=== PATIENT | female | born 1950 | race Caucasian/White ===

== ENCOUNTER 2016-06-22 15:06 | Inpatient (IN) | payer OTHER ==
[~2016-06-22] VITALS: Ht 157.5 cm; Wt 73.5 kg
[~2016-06-22 15:06] MED LIST: COVERA HS 240240 MG PO; CYMBALTA60 MG PO; FLONASE16 G1 BOTH NARES; FUROSEMIDE20 MG PO; HYDROCHLOROTH12.5 MG PO; LOVASTATIN40 MG PO; MAGNESIUM400 M1 PO; MECLIZINE HCL25 MG PO; MELATONIN10 M1 PO; MIRALAX255 GM PO; MUCINEX D ER T1 EACH PO; PRAVASTATIN SOD80 MG PO; SYMBICORT60 INHALAT IH; VERAPAMIL HCL180 MG PO; ZANTAC300 MG PO; ZETIA10 MG PO
[2016-06-22 16:23] LABS: HEMATOCRIT 31.5 % (36.0-46.0); MCH 26.8 PG (29.0-34.0); MCHC 32.7 G/DL (30.0-36.0); MEAN PLAT.VOLUME 11.2 uM^3 (9.5-12.4); PLATELET COUNT 593 K/uL (156-360); RBC DIS.WIDTH-CV 16.6 % (11.8-14.6); RBC DIS.WIDTH-SD 48.3 % (39-53); RED BLOOD COUNT 3.84 M/uL (3.80-5.20); WHITE BLOOD COUNT 11.9 K/uL (4.1-10.2)
[2016-06-22 16:33] LABS: INTER. NORMALIZED RATIO 1.2; PROTHROMBIN TIME 12.7 (9.2-11.2); PTT 35.2 (25-32)
[2016-06-22 16:38] LABS: CHLORIDE 98 mEq/L (99-109); SODIUM 132 mEq/L (136-147)
[2016-06-22 16:39] LABS: GLUCOSE 107 mg/dL (70-99)
[2016-06-22 16:41] LABS: ANION GAP 13 MEQ/L (2-14)
[2016-06-22 16:43] LABS: GFR ESTIMATE (CALCULATED) > 59 mL/min/
[2016-06-22 16:44] LABS: TROP-I INTERPRETATION NEGATIVE; TROPONIN-I < 0.01 ng/mL (0.0-0.30); UREA NITROGEN (BUN) 11 mg/dL (9-23)
[2016-06-22] MEDS ORDERED: OXAYDO5 MG PO (22:33)
[2016-06-22] MEDS ORDERED: K-DUR20 MEQ PO (22:33)
[2016-06-23 06:27] LABS: HEMATOCRIT 28.7 % (36.0-46.0); MCH 26.8 PG (29.0-34.0); MCHC 32.8 G/DL (30.0-36.0); MCV 81.8 FL (83-99); MEAN PLAT.VOLUME 11.1 uM^3 (9.5-12.4); PLATELET COUNT 580 K/uL (156-360); RBC DIS.WIDTH-CV 16.7 % (11.8-14.6); RED BLOOD COUNT 3.51 M/uL (3.80-5.20); WHITE BLOOD COUNT 9.2 K/uL (4.1-10.2)
[2016-06-23 06:34] LABS: CHLORIDE 104 mEq/L (99-109); SODIUM 137 mEq/L (136-147)
[2016-06-23 06:36] LABS: POTASSIUM 3.7 mEq/L (3.7-5.4)
[2016-06-23 06:37] LABS: GLUCOSE 94 mg/dL (70-99); INTER. NORMALIZED RATIO 1.2; PROTHROMBIN TIME 12.7 (9.2-11.2); PTT 48.2 (25-32)
[2016-06-23 06:38] LABS: ANION GAP 13 MEQ/L (2-14); TOTAL BILIRUBIN 0.5 mg/dL (0.0-1.0)
[2016-06-23 06:40] LABS: ALKALINE PHOSPHATASE 134 IU/L (3-129); GFR ESTIMATE (CALCULATED) > 59 mL/min/
[2016-06-23 06:41] LABS: UREA NITROGEN (BUN) 9 mg/dL (9-23)
[2016-06-23 14:03] VITALS: BP 116/70
[2016-06-23 14:13] LABS: INTER. NORMALIZED RATIO 1.2; PROTHROMBIN TIME 12.7 (9.2-11.2); PTT 57.4 (25-32)
[2016-06-23 16:00] VITALS: BP 125/58
[2016-06-23 20:00] VITALS: BP 135/74
[2016-06-23 21:32] LABS: INTER. NORMALIZED RATIO 1.3; PROTHROMBIN TIME 13.2 (9.2-11.2); PTT 43.4 (25-32)
== END 2016-06-24 00:28 | disposition short-term general hospital (02) | DRG 299 ==
LOC: EME 15:06 → EDOF 23:14 → 4EAST 06-23 15:48
PROVIDERS: Emergency Medicine; Hospitalist
DX: I82.411 Acute embolism and thrombosis of right femoral vein (principal); I26.99 Other pulmonary embolism without acute cor pulmonale; T81.31XA Disruption of external operation (surgical) wound, not elsewhere classified, initial encounter; I10 Essential (primary) hypertension; I38 Endocarditis, valve unspecified; E78.5 Hyperlipidemia, unspecified; G43.909 Migraine, unspecified, not intractable, without status migrainosus; Z96.652 Presence of left artificial knee joint; T81.4XXA Infection following a procedure, initial encounter; L02.211 Cutaneous abscess of abdominal wall; E66.9 Obesity, unspecified; L76.34 Postprocedural seroma of skin and subcutaneous tissue following other procedure; Y83.6 Removal of other organ (partial) (total) as the cause of abnormal reaction of the patient, or of later complication, without mention of misadventure at the time of the procedure
CPT/HCPCS: 80048; 80053; 84484; 85027; 85610; 85730; 93970; 94799; 99281; 99285; C9113; G0378; J0692; J7030; J7040; J7050; S0030

== ENCOUNTER 2016-11-23 09:53 | Day surgery (SDC) | payer OTHER ==
[~2016-11-23] VITALS: Ht 157.5 cm; Wt 76.0 kg
[~2016-11-23 09:53] MED LIST changes: +24 HOUR ALLER15.8 ML BOTH NARES; +FAMOTIDINE20 MG PO; +K-DUR20 MEQ PO; +LORADAMED10 MG PO; +MUCINEX1200 MG PO; +OXAYDO5 MG PO; +XARELTO20 MG PO; +ZOFRAN4 MG PO
== END 2016-11-23 16:55 | disposition home or self-care (01) ==
LOC: CATH 09:53
DX: I25.10 Atherosclerotic heart disease of native coronary artery without angina pectoris (principal); I35.0 Nonrheumatic aortic (valve) stenosis; I10 Essential (primary) hypertension; E78.5 Hyperlipidemia, unspecified; Z68.33 Body mass index [BMI] 33.0-33.9, adult; E66.9 Obesity, unspecified; Z86.711 Personal history of pulmonary embolism; Z86.718 Personal history of other venous thrombosis and embolism; Z79.01 Long term (current) use of anticoagulants; Z85.07 Personal history of malignant neoplasm of pancreas; Z88.0 Allergy status to penicillin; Z87.891 Personal history of nicotine dependence; Z82.49 Family history of ischemic heart disease and other diseases of the circulatory system
CPT/HCPCS: 85347; C1769; C1887; J1644; J2250; J3010

== ENCOUNTER 2016-11-26 09:12 | Inpatient (IN) | payer OTHER ==
[~2016-11-26] VITALS: Ht 154.9 cm; Wt 75.3 kg
[2016-11-26] VITALS (9 sets, daily range): BP systolic 104–135; BP diastolic 62–76
[2016-11-26 09:43] LABS: ADD MIUA? YES; BILIRUBIN NEGATIVE; BLOOD LARGE; COLOR AMBER ((YELLOW)); GLUCOSE (STRIP) NEGATIVE; KETONES NEGATIVE; LEUKOCYTES LARGE; NITRITE NEGATIVE; PROTEIN (STRIP) 100; SPECIFIC GRAVITY 1.009 (1.000-1.030); UROBILINOGEN 0.2 MG/DL (0.2-1.0)
[2016-11-26 09:49] LABS: BACTERIA 1+ /HPF; BUDDING YEAST 2+; EPITHELIAL CELLS NONE SEEN /HPF; MUCUS NONE SEEN /LPF; RED BLOOD CELLS TNTC /HPF (0-5); UCUL ADDED? YES; WHITE BLOOD CELLS TNTC /HPF (0-5)
[2016-11-26 09:50] LABS: MCH 25.8 PG (29.0-34.0); MCHC 32.3 G/DL (30.0-36.0); MCV 79.8 FL (83-99); MEAN PLAT.VOLUME 11.2 uM^3 (9.5-12.4); PLATELET COUNT 548 K/uL (156-360); RBC DIS.WIDTH-CV 17.1 % (11.8-14.6); RBC DIS.WIDTH-SD 49.1 % (39-53); RED BLOOD COUNT 4.89 M/uL (3.80-5.20); WHITE BLOOD COUNT 12.2 K/uL (4.1-10.2)
[2016-11-26 10:02] LABS: CHLORIDE 105 mEq/L (99-109); POTASSIUM 3.6 mEq/L (3.7-5.4); SODIUM 143 mEq/L (136-147)
[2016-11-26 10:03] LABS: GLUCOSE 120 mg/dL (70-99)
[2016-11-26 10:05] LABS: ANION GAP 11 MEQ/L (2-14)
[2016-11-26 10:07] LABS: GFR ESTIMATE (CALCULATED) > 59 mL/min/
[2016-11-26 10:08] LABS: UREA NITROGEN (BUN) 13 mg/dL (9-23)
[2016-11-26 10:17] LABS: TROP-I INTERPRETATION POSITIVE; TROPONIN-I 5.11 ng/mL (0.0-0.30)
[2016-11-26] MEDS ORDERED: VERAPAMIL SR120 MG PO (11:34)
[2016-11-26] MEDS ORDERED: TYLENOL EXTRA500 MG PO (11:34)
[2016-11-26] MEDS ORDERED: ANTIVERT25 MG PO (11:35)
[2016-11-26] MEDS ORDERED: FLUNISOLIDE25 ML BOTH NARES (11:36)
[2016-11-26 13:56] LABS: TROP-I INTERPRETATION POSITIVE; TROPONIN-I 8.81 ng/mL (0.0-0.30)
[2016-11-26 19:18] LABS: METH RESISTANT S AUREUS PCR NEGATIVE (NEGATIVE)
[2016-11-26 19:29] LABS: PROBE CHECK PASS; SPECIMEN PROCESSING CONTROL PASS
[2016-11-26 22:13] LABS: TROP-I INTERPRETATION POSITIVE
[2016-11-26 22:35] LABS: INTER. NORMALIZED RATIO 1.1; PROTHROMBIN TIME 11.2 (9.2-11.2)
[2016-11-27] VITALS (16 sets, daily range): BP systolic 104–152; BP diastolic 54–78
[2016-11-27 04:19] LABS: HEMATOCRIT 34.8 % (36.0-46.0); MCH 25.7 PG (29.0-34.0); MCHC 32.2 G/DL (30.0-36.0); MCV 79.8 FL (83-99); MEAN PLAT.VOLUME 11.2 uM^3 (9.5-12.4); PLATELET COUNT 473 K/uL (156-360); RBC DIS.WIDTH-SD 47.8 % (39-53); RED BLOOD COUNT 4.36 M/uL (3.80-5.20); WHITE BLOOD COUNT 11.5 K/uL (4.1-10.2)
[2016-11-27 04:33] LABS: CHLORIDE 110 mEq/L (99-109); SODIUM 142 mEq/L (136-147)
[2016-11-27 04:34] LABS: MAGNESIUM 1.8 mg/dL (1.3-2.7)
[2016-11-27 04:35] LABS: GLUCOSE 112 mg/dL (70-99)
[2016-11-27 04:37] LABS: ANION GAP 9 MEQ/L (2-14)
[2016-11-27 04:39] LABS: GFR ESTIMATE (CALCULATED) > 59 mL/min/
[2016-11-27 04:40] LABS: UREA NITROGEN (BUN) 18 mg/dL (9-23)
[2016-11-27 04:41] LABS: TROP-I INTERPRETATION POSITIVE; TROPONIN-I 5.47 ng/mL (0.0-0.30)
[2016-11-27 14:51] LABS: TROP-I INTERPRETATION POSITIVE; TROPONIN-I 4.16 ng/mL (0.0-0.30)
[2016-11-27 19:31] LABS: TROP-I INTERPRETATION POSITIVE; TROPONIN-I 4.06 ng/mL (0.0-0.30)
== END 2016-11-27 23:02 | disposition short-term general hospital (02) | DRG 281 ==
LOC: EME 09:12 → 4WEST 13:07 → EDOF 13:07 → 4WEST 17:27
PROVIDERS: Emergency Medicine; Internal Medicine Critical Care Medicine
DX: I21.4 Non-ST elevation (NSTEMI) myocardial infarction (principal); Z95.1 Presence of aortocoronary bypass graft; Z95.2 Presence of prosthetic heart valve; I10 Essential (primary) hypertension; E78.5 Hyperlipidemia, unspecified; E87.6 Hypokalemia; I25.2 Old myocardial infarction; I35.0 Nonrheumatic aortic (valve) stenosis; I44.0 Atrioventricular block, first degree; K21.9 Gastro-esophageal reflux disease without esophagitis; N39.0 Urinary tract infection, site not specified; R04.0 Epistaxis; Z80.1 Family history of malignant neoplasm of trachea, bronchus and lung; Z80.51 Family history of malignant neoplasm of kidney; Z82.5 Family history of asthma and other chronic lower respiratory diseases; Z82.49 Family history of ischemic heart disease and other diseases of the circulatory system; Z85.07 Personal history of malignant neoplasm of pancreas; Z86.711 Personal history of pulmonary embolism; Z86.718 Personal history of other venous thrombosis and embolism; Z87.442 Personal history of urinary calculi; Z87.891 Personal history of nicotine dependence; Z88.6 Allergy status to analgesic agent; Z90.49 Acquired absence of other specified parts of digestive tract; Z90.710 Acquired absence of both cervix and uterus; Z90.81 Acquired absence of spleen; K30 Functional dyspepsia; R20.2 Paresthesia of skin; R31.9 Hematuria, unspecified
CPT/HCPCS: 71020; 80048; 81003; 83735; 84100; 84484; 85027; 85610; 85730; 87077; 87086; 87186; 87641; 93005; 99281; 99285; J7030

== ENCOUNTER 2017-01-16 09:16 | Emergency (ER) | payer OTHER ==
[~2017-01-16] VITALS: Ht 154.9 cm; Wt 81.4 kg
[~2017-01-16 09:16] MED LIST changes: +ANTIVERT25 MG PO; +FLUNISOLIDE25 ML BOTH NARES; +TYLENOL EXTRA500 MG PO; +VERAPAMIL SR120 MG PO
[2017-01-16] MEDS ORDERED: BACTRIM,SEPT1 TABLET PO (11:40)
[2017-01-16] MEDS ORDERED: NORCO 5/3251 TABLET PO (11:55)
[2017-01-16 11:59] VITALS: BP 118/64
== END 2017-01-16 11:59 | disposition home or self-care (01) ==
LOC: EME 09:16
DX: L03.319 Cellulitis of trunk, unspecified (principal); I10 Essential (primary) hypertension; M79.7 Fibromyalgia; K21.9 Gastro-esophageal reflux disease without esophagitis; Z85.07 Personal history of malignant neoplasm of pancreas; Z87.442 Personal history of urinary calculi; Z95.2 Presence of prosthetic heart valve

== ENCOUNTER 2017-06-14 13:55 | Inpatient (IN) | payer OTHER ==
[~2017-06-14] VITALS: Ht 157.5 cm; Wt 89.8 kg
[~2017-06-14 13:55] MED LIST changes: +BACTRIM,SEPT1 TABLET PO; +NORCO 5/3251 TABLET PO; +ROXICODONE5 MG PO; +XARELTO15 MG PO; -XARELTO20 MG PO
[2017-06-14 15:45] LABS: ALBUMIN 3.5 g/dL (3.2-4.8)
[2017-06-14 15:46] LABS: CHLORIDE 92 mEq/L (99-109); POTASSIUM 3.1 mEq/L (3.7-5.4); SODIUM 132 mEq/L (136-147)
[2017-06-14 15:48] LABS: GLUCOSE 191 mg/dL (70-99); TOTAL PROTEIN 7.8 g/dL (6.4-8.3)
[2017-06-14 15:49] LABS: APPEARANCE CLOUDY ((CLEAR)); BILIRUBIN NEGATIVE; BLOOD NEGATIVE; COLOR AMBER ((YELLOW)); GLUCOSE (STRIP) NEGATIVE; KETONES NEGATIVE; LEUKOCYTES NEGATIVE; NITRITE NEGATIVE; PROTEIN (STRIP) 100; SPECIFIC GRAVITY 1.023 (1.000-1.030); UROBILINOGEN 0.2 MG/DL (0.2-1.0)
[2017-06-14 15:50] LABS: TOTAL BILIRUBIN 0.6 mg/dL (0.0-1.0)
[2017-06-14 15:51] LABS: ALKALINE PHOSPHATASE 300 IU/L (3-129)
[2017-06-14 15:52] LABS: CREATININE 1.6 mg/dL (0.6-1.3); GFR ESTIMATE (CALCULATED) 34 mL/min/
[2017-06-14 15:53] LABS: AST (GOT) 409 IU/L (2-34); UREA NITROGEN (BUN) 50 mg/dL (9-23)
[2017-06-14 15:55] LABS: ALT (GPT) 289 IU/L (3-49); LIPASE 106 U/L (1.0-51.0)
[2017-06-14 16:51] LABS: BACTERIA 1+ /HPF; EPITHELIAL CELLS 2+ /HPF; HYALINE CASTS TNTC /LPF; MUCUS 1+ /LPF; RED BLOOD CELLS 0-5 /HPF (0-5); UCUL ADDED? YES
[2017-06-14 17:05] LABS: HEMATOCRIT 41.1 % (36.0-46.0); MCH 24.9 PG (29.0-34.0); MCHC 33.3 G/DL (30.0-36.0); MCV 74.7 FL (83-99); NRBC (%) 47.7 /100 WBC (0-0); PLATELET COUNT 380 K/uL (156-360); RBC DIS.WIDTH-CV 19.2 % (11.8-14.6); RBC DIS.WIDTH-SD 42.7 % (39-53)
[2017-06-14 17:06] LABS: HEMOGLOBIN 13.7 G/DL (11.9-15.5)
[2017-06-14 17:41] LABS: WHITE BLOOD COUNT 18.8 K/uL (4.1-10.2)
[2017-06-14] MEDS ORDERED: COMPAZINE10 MG PO (17:51)
[2017-06-14] MEDS ORDERED: KLOR-CON M2020 MEQ PO (17:52)
[2017-06-14 22:00] LABS: INTER. NORMALIZED RATIO 2.1
[2017-06-14 22:02] LABS: PTT 29.9 SEC (25-37)
[2017-06-15 00:07] LABS: C DIFF TOXIN NEGATIVE (NEGATIVE)
[2017-06-15 04:22] VITALS: BP 125/68
[2017-06-15 06:39] LABS: ALBUMIN 2.6 G/DL (3.2-4.8); ALKALINE PHOSPHATASE 231 IU/L (3-129); ALT (GPT) 168 IU/L (3-49); AST (GOT) 247 IU/L (2-34); CHLORIDE 104 MEQ/L (99-109); CREATININE 1.2 MG/DL (0.6-1.3); DIRECT BILIRUBIN 0.2 mg/dL (0.0-0.3); GFR ESTIMATE (CALCULATED) 48 mL/min/; GLUCOSE 158 mg/dL (70-99); POTASSIUM 2.9 MEQ/L (3.7-5.4); SODIUM 137 MEQ/L (136-147); TOTAL BILIRUBIN 0.5 MG/DL (0.0-1.0); TOTAL PROTEIN 5.6 G/DL (6.4-8.3); UREA NITROGEN (BUN) 39 mg/dL (9-23)
[2017-06-15 07:30] VITALS: BP 119/68
[2017-06-15 08:30] LABS: PLATELET COUNT UNABLE TO REPORT K/uL (156-360)
[2017-06-15 08:56] LABS: HEMATOCRIT 34.7 % (36.0-46.0); MCH 24.5 PG (29.0-34.0); MCHC 32.3 G/DL (30.0-36.0); MCV 75.9 FL (83-99); NRBC (%) 48.6 /100 WBC (0-0); RBC DIS.WIDTH-CV 18.8 % (11.8-14.6); RED BLOOD COUNT 4.57 M/uL (3.80-5.20)
[2017-06-15 08:57] LABS: ABS NEUTROPHIL COUNT 18.1; ANISOCYTOSIS 2+; ATYPICAL LYMPHOCYTE 3.9 %; BAND NEUTROPHILS 34.7 % (0-8.0); BASOPHILS 0.8 %; BURR CELLS 2+; EOSINOPHIL ABS CT 0; GIANT PLATELETS 2+; HOWELL JOLLY BODIES 1+; HYPOCHROMASIA 1+; LYMPHOCYTES 13.8 % (15.0-45.0); MACROCYTES 1+; METAMYELOCYTES 3.8 %; MONOCYTES 13.8 % (0-9.0); MYELOCYTES 3.1 %; NUCLEATED RBC'S 171.5; OTHER 4.6; POIKILOCYTOSIS 3+; SEG.NEUTROPHILS 21.5 % (46.0-76.0); SPHEROCYTES 1+; TARGET CELLS 2+
[2017-06-15 08:59] LABS: HEMOGLOBIN 11.2 G/DL (11.9-15.5); WHITE BLOOD COUNT 17.6 K/uL (4.1-10.2)
[2017-06-15 09:01] LABS: ABS NEUTROPHIL COUNT 6.8; BAND NEUTROPHILS 17.5 % (0-8.0); EOSINOPHIL ABS CT 0; GIANT PLATELETS 1+; LARGE PLATELETS 2+; LYMPHOCYTES 28.5 % (15.0-45.0); MACROCYTES 2+; NUCLEATED RBC'S 98.5; PLATELET CLUMPS PRESENT - PLATELET C; POLYCHROMASIA 1+; TARGET CELLS 1+
[2017-06-15 09:13] LABS: MAGNESIUM 1.9 mg/dl (1.3-2.7)
[2017-06-15 11:49] VITALS: BP 121/66
[2017-06-15 16:35] VITALS: BP 156/75
[2017-06-15 20:01] VITALS: BP 121/65
[2017-06-15 23:04] VITALS: BP 134/64
[2017-06-16 04:50] VITALS: BP 125/64
[2017-06-16 06:35] LABS: HEMATOCRIT 29.6 % (36.0-46.0); HEMOGLOBIN 9.8 G/DL (11.9-15.5); MCH 25.4 PG (29.0-34.0); MCHC 33.1 G/DL (30.0-36.0); MCV 76.7 FL (83-99); RBC DIS.WIDTH-CV 19.1 % (11.8-14.6); RED BLOOD COUNT 3.86 M/uL (3.80-5.20)
[2017-06-16 06:56] LABS: ALBUMIN 2.2 G/DL (3.2-4.8); ALT (GPT) 108 IU/L (3-49); CHLORIDE 109 MEQ/L (99-109); CREATININE 0.8 MG/DL (0.6-1.3); GFR ESTIMATE (CALCULATED) > 59 mL/min/; GLUCOSE 174 mg/dL (70-99); POTASSIUM 3.1 MEQ/L (3.7-5.4); SODIUM 140 MEQ/L (136-147)
[2017-06-16 06:59] LABS: ALKALINE PHOSPHATASE 171 IU/L (3-129); AST (GOT) 121 IU/L (2-34); TOTAL BILIRUBIN 0.3 MG/DL (0.0-1.0); TOTAL PROTEIN 4.4 G/DL (6.4-8.3); UREA NITROGEN (BUN) 18 mg/dL (9-23); WHITE BLOOD COUNT 23.8 K/uL (4.1-10.2)
[2017-06-16 07:11] LABS: ABS NEUTROPHIL COUNT 25.5; ANISOCYTOSIS 2+; BAND NEUTROPHILS 4.2 % (0-8.0); BASOPHILS 1.8 %; BURR CELLS 2+; EOSINOPHIL ABS CT 0; HOWELL JOLLY BODIES 1+; HYPOCHROMASIA 2+; LYMPHOCYTES 17.5 % (15.0-45.0); MACROCYTES 2+; METAMYELOCYTES 0.6 %; MYELOCYTES 5.4 %; NUCLEATED RBC'S 166.9; OVALOCYTES 1+; PLAT.SUFFICIENCY ADEQUATE; PLATELET COUNT 224 K/uL (156-360); POIKILOCYTOSIS 3+; POLYCHROMASIA 1+; SEG.NEUTROPHILS 58.5 % (46.0-76.0); TARGET CELLS 2+
[2017-06-16 07:19] LABS: HEMOGLOBIN A1c (GLYCOHEMOGLOB) 7.3 % (Below 5.7)
[2017-06-16 07:30] VITALS: BP 144/77
[2017-06-16 11:17] VITALS: BP 138/64
[2017-06-16 17:10] VITALS: BP 124/64
[2017-06-16 18:53] VITALS: BP 138/65
[2017-06-16 22:13] VITALS: BP 134/61
[2017-06-17 04:25] VITALS: BP 125/60
[2017-06-17 06:43] LABS: ABS NEUTROPHIL COUNT 27.5; ACANTHOCYTES 1+; ANISOCYTOSIS 2+; BAND NEUTROPHILS 1.4 % (0-8.0); BASOPHILS 1.4 %; BURR CELLS 2+; EOSINOPHIL ABS CT 0; GIANT PLATELETS 1+; HEMATOCRIT 28.8 % (36.0-46.0); HEMOGLOBIN 9.6 G/DL (11.9-15.5); LYMPHOCYTES 13.7 % (15.0-45.0); MACROCYTES 2+; MCH 25.7 PG (29.0-34.0); MCHC 33.3 G/DL (30.0-36.0); METAMYELOCYTES 4.3 %; MYELOCYTES 6.1 %; NRBC (%) 51.2 /100 WBC (0-0); OVALOCYTES 2+; PLAT.SUFFICIENCY ADEQUATE; PLATELET COUNT 181 K/uL (156-360); POIKILOCYTOSIS 3+; POLYCHROMASIA 1+; RBC DIS.WIDTH-SD 46.1 % (39-53); RED BLOOD COUNT 3.74 M/uL (3.80-5.20); SCHISTOCYTES 2+; SEG.NEUTROPHILS 57.1 % (46.0-76.0); TEAR DROP CELLS 1+
[2017-06-17 06:49] LABS: ALBUMIN 2.1 G/DL (3.2-4.8); ALKALINE PHOSPHATASE 148 IU/L (3-129); ALT (GPT) 73 IU/L (3-49); AST (GOT) 78 IU/L (2-34); CHLORIDE 111 MEQ/L (99-109); CREATININE 0.6 MG/DL (0.6-1.3); GFR ESTIMATE (CALCULATED) > 59 mL/min/; GLUCOSE 161 mg/dL (70-99); POTASSIUM 3.1 MEQ/L (3.7-5.4); SODIUM 139 MEQ/L (136-147); TOTAL PROTEIN 4.3 G/DL (6.4-8.3); UREA NITROGEN (BUN) 7 mg/dL (9-23)
[2017-06-17 06:51] LABS: TOTAL BILIRUBIN 0.4 MG/DL (0.0-1.0)
[2017-06-17 08:09] VITALS: BP 116/56
[2017-06-17 14:07] LABS: APPEARANCE CLOUDY ((CLEAR)); BILIRUBIN NEGATIVE; BLOOD MODERATE; COLOR AMBER ((YELLOW)); GLUCOSE (STRIP) NEGATIVE; KETONES NEGATIVE; LEUKOCYTES MODERATE; NITRITE NEGATIVE; PROTEIN (STRIP) NEGATIVE; SPECIFIC GRAVITY 1.017 (1.000-1.030); UROBILINOGEN 0.2 MG/DL (0.2-1.0)
[2017-06-17 14:15] LABS: BACTERIA RARE /HPF; EPITHELIAL CELLS 1+ /HPF; MUCUS 1+ /LPF; RED BLOOD CELLS TNTC /HPF (0-5); URIC ACID CRYSTALS 3+ /HPF; WHITE BLOOD CELLS 20-30 /HPF (0-5)
[2017-06-17 16:17] VITALS: BP 118/59
[2017-06-17 19:48] VITALS: BP 129/70
[2017-06-18] VITALS: BP 132/62
[2017-06-18 03:51] VITALS: BP 127/68
[2017-06-18 06:17] LABS: HEMATOCRIT 27.2 % (36.0-46.0); HEMOGLOBIN 8.9 G/DL (11.9-15.5); MCH 25.1 PG (29.0-34.0); MCHC 32.7 G/DL (30.0-36.0); MCV 76.6 FL (83-99); NRBC (%) 45.2 /100 WBC (0-0); RBC DIS.WIDTH-CV 19.6 % (11.8-14.6); RBC DIS.WIDTH-SD 45.5 % (39-53); RED BLOOD COUNT 3.55 M/uL (3.80-5.20); WHITE BLOOD COUNT 52.2 K/uL (4.1-10.2)
[2017-06-18 07:07] LABS: ALKALINE PHOSPHATASE 133 IU/L (3-129); ALT (GPT) 54 IU/L (3-49); AST (GOT) 51 IU/L (2-34); CHLORIDE 107 MEQ/L (99-109); CREATININE 0.6 MG/DL (0.6-1.3); GFR ESTIMATE (CALCULATED) > 59 mL/min/; GLUCOSE 135 mg/dL (70-99); SODIUM 139 MEQ/L (136-147); TOTAL BILIRUBIN 0.4 MG/DL (0.0-1.0); TOTAL PROTEIN 4.1 G/DL (6.4-8.3); UREA NITROGEN (BUN) 4 mg/dL (9-23)
[2017-06-18 07:15] LABS: ABS NEUTROPHIL COUNT 32.4; ANISOCYTOSIS 2+; BAND NEUTROPHILS 14.8 % (0-8.0); BURR CELLS 2+; EOSINOPHIL ABS CT 0; HELMET CELLS 1+; LYMPHOCYTES 1.8 % (15.0-45.0); MACROCYTES 2+; METAMYELOCYTES 6.5 %; MYELOCYTES 16.7 %; NUCLEATED RBC'S 95.4; OVALOCYTES 1+; PLAT.SUFFICIENCY ADEQUATE; PLATELET COUNT 154 K/uL (156-360); POIKILOCYTOSIS 2+; SEG.NEUTROPHILS 47.2 % (46.0-76.0); SMUDGE CELLS 16.7
[2017-06-18 07:52] VITALS: BP 138/76
[2017-06-18 11:31] VITALS: BP 122/71
[2017-06-18 15:16] VITALS: BP 120/67
[2017-06-18 19:37] VITALS: BP 136/63
[2017-06-19 00:10] VITALS: BP 129/62
[2017-06-19 04:22] VITALS: BP 143/72
[2017-06-19 07:40] LABS: HEMOGLOBIN 9.2 G/DL (11.9-15.5); MCH 26.1 PG (29.0-34.0); MCHC 34.1 G/DL (30.0-36.0); MCV 76.5 FL (83-99); RBC DIS.WIDTH-CV 20.7 % (11.8-14.6); RBC DIS.WIDTH-SD 45.2 % (39-53); RED BLOOD COUNT 3.53 M/uL (3.80-5.20)
[2017-06-19 07:55] LABS: ALBUMIN 1.9 G/DL (3.2-4.8); ALKALINE PHOSPHATASE 144 IU/L (3-129); ALT (GPT) 35 IU/L (3-49); AST (GOT) 34 IU/L (2-34); CHLORIDE 108 MEQ/L (99-109); CREATININE 0.5 MG/DL (0.6-1.3); DIRECT BILIRUBIN 0.1 mg/dL (0.0-0.3); GFR ESTIMATE (CALCULATED) > 59 mL/min/; GLUCOSE 142 mg/dL (70-99); POTASSIUM 3.2 MEQ/L (3.7-5.4); SODIUM 140 MEQ/L (136-147); TOTAL BILIRUBIN 0.4 MG/DL (0.0-1.0); TOTAL PROTEIN 4.1 G/DL (6.4-8.3); UREA NITROGEN (BUN) 3 mg/dL (9-23)
[2017-06-19 08:33] LABS: ABS NEUTROPHIL COUNT 31.3; ANISOCYTOSIS 3+; ATYPICAL LYMPHOCYTE 0.5 %; BAND NEUTROPHILS 15.8 % (0-8.0); BASOPH.STIPPLING 1+; BASOPHILS 0.5 %; BURR CELLS 1+; EOSINOPHIL ABS CT 0; GIANT PLATELETS 1+; HOWELL JOLLY BODIES 1+; MACROCYTES 2+; METAMYELOCYTES 5.9 %; MONOCYTES 15.4 % (0-9.0); MYELOCYTES 5.4 %; NUCLEATED RBC'S 58.8; OVALOCYTES 1+; PLAT.SUFFICIENCY DECREASED; PLATELET COUNT 142 K/uL (156-360); POIKILOCYTOSIS 2+; POLYCHROMASIA 2+; SCHISTOCYTES 1+; SEG.NEUTROPHILS 42.5 % (46.0-76.0); SMUDGE CELLS 9.5
[2017-06-19 08:40] VITALS: BP 111/57
[2017-06-19 08:43] LABS: WHITE BLOOD COUNT 45.3 K/uL (4.1-10.2)
[2017-06-19 11:50] VITALS: BP 138/65
[2017-06-19] MEDS ORDERED: KLOR-CON M2020 MEQ PO (12:06)
[2017-06-19] MEDS ORDERED: FLAGYL500 MG PO (12:07)
[2017-06-19] MEDS ORDERED: METFORMIN HCL500 MG PO (12:21)
== END 2017-06-19 14:16 | disposition home or self-care (01) | DRG 872 ==
LOC: EME 13:55 → 4EAST 19:41 → EDOF 19:41 → ENRESERV 19:42 → 4EAST 06-15 04:06 → ENRESERV 06-16 17:20 → 4SOUTH 06-16 21:53
PROVIDERS: Emergency Medicine; Family Medicine; Hospitalist; Surgery
PROC: 02HV33Z Insertion of Infusion Device into Superior Vena Cava, Percutaneous Approach (ICD-10-PCS; principal; 2017-06-14)
DX: A41.9 Sepsis, unspecified organism (principal); K55.9 Vascular disorder of intestine, unspecified; N17.9 Acute kidney failure, unspecified; C25.9 Malignant neoplasm of pancreas, unspecified; B37.0 Candidal stomatitis; E86.0 Dehydration; E87.2 Acidosis; E87.6 Hypokalemia; E87.1 Hypo-osmolality and hyponatremia; E11.65 Type 2 diabetes mellitus with hyperglycemia; K52.1 Toxic gastroenteritis and colitis; T45.1X5A Adverse effect of antineoplastic and immunosuppressive drugs, initial encounter; K80.50 Calculus of bile duct without cholangitis or cholecystitis without obstruction; I10 Essential (primary) hypertension; K21.9 Gastro-esophageal reflux disease without esophagitis; I25.10 Atherosclerotic heart disease of native coronary artery without angina pectoris; N20.0 Calculus of kidney; M79.7 Fibromyalgia; G43.909 Migraine, unspecified, not intractable, without status migrainosus; J30.9 Allergic rhinitis, unspecified; M19.90 Unspecified osteoarthritis, unspecified site; E78.5 Hyperlipidemia, unspecified; F32.9 Major depressive disorder, single episode, unspecified; I25.2 Old myocardial infarction; Z68.34 Body mass index [BMI] 34.0-34.9, adult; E66.9 Obesity, unspecified; Z90.411 Acquired partial absence of pancreas; Z79.01 Long term (current) use of anticoagulants; Z80.1 Family history of malignant neoplasm of trachea, bronchus and lung; Z82.49 Family history of ischemic heart disease and other diseases of the circulatory system; Z82.5 Family history of asthma and other chronic lower respiratory diseases; Z86.711 Personal history of pulmonary embolism; Z86.718 Personal history of other venous thrombosis and embolism; Z87.891 Personal history of nicotine dependence; Z90.81 Acquired absence of spleen; Z95.2 Presence of prosthetic heart valve
CPT/HCPCS: 71045; 74176; 74181; 80048; 80053; 80076; 81003; 82948; 83036; 83605; 83690; 83735; 85025; 85027; 85610; 85730; 87040; 87086; 87106; 87493; 90686; 99281; 99285; C1751; J0692; J0696; J1815; J2270; J2405; J3475; J3480; J7030; S0030